=== PATIENT | female | born 1945 | race Caucasian/White ===

== ENCOUNTER → 2017-01-28 | Day surgery (SDC) | payer BC ==
[~2017-01-28] MED LIST: Lactated Ringers 1,000 ML IV SCH; Propofol 200 MG/20 ML SDV IV ONE
[2017-01-28 09:05] VITALS: BP 128/63
--- NOTE | 2017-01-31 07:20 | OR ---
DATE OF OPERATION: 01/28/2017 PREOPERATIVE DIAGNOSIS: 1. CHRONIC GASTROESOPHAGEAL REFLUX DISEASE. 2. HISTORY OF COLON POLYPS. POSTOPERATIVE DIAGNOSIS: 1. CHRONIC GASTROESOPHAGEAL REFLUX DISEASE. 2. HISTORY OF COLON POLYPS. SURGEON: Zaki Ayala MD PROCEDURE: 1. ESOPHAGOGASTRODUODENOSCOPY WITH POLYP REMOVAL X2, BIOPSY X2, QUINN. 2. FULL-LENGTH COLONOSCOPY. ANESTHESIA: [employer] due to ASA III and morbid obesity, BMI greater than 40. COMPLICATIONS: None. SPECIMEN: 1. Fundal polyps x2. 2. Fundal polyp biopsy x2. 3. Antral QUINN. FINDINGS: 1. Full-length EGD. 2. Fundal polyposis, adenomatous in appearance. 3. Hiatal hernia with spontaneous GERD without esophagitis or Jimenez's changes. 4. Full-length colonoscopy. 5. Mild sigmoid diverticulosis. RECOMMENDATIONS: The patient will have routine colonoscopy in 5 years. Routine follow up with Dr. Bryant for medical management of reflux. INDICATIONS: The patient apparently has a history of chronic GERD. She says she has had polyps in her stomach in the past. She has had multiple prior EGDs. She has also had colon polyps and is due for a followup colonoscopy. Dr. Bryant sent her for both upper and lower scopes. DESCRIPTION OF PROCEDURE: The patient was prepped and draped, placed in the left lateral decubitus position. A lubricated Olympus gastroscope was inserted over a bit, advanced into cricopharyngeal area, and easily intubated into the esophagus. Esophageal lining was benign in its entire course. The Z-line was crisp and sharp, at 37 cm, there is a mild to moderate-sized hiatal hernia present without any distal esophagitis, stricturing, ulceration, or Jimenez's changes. There is some spontaneous reflux seen. The scope was easily intubated into the stomach through the pylorus and into second and third portion of duodenum along with duodenal bulb, were completely benign. The scope was brought back into the stomach. For the most part, the entire antrum and distal fundus appeared unremarkable. With retroflexion look at the upper fundus and cardia, the patient does have polyposis syndrome. The patient does have countless benign appearing adenomatous polyps in the upper fundus. Cardia portion of the stomach all appear benign. Two of these were removed in their entirety almost with forceps. Two other larger wounds were biopsied at their base. These according to the patient have been removed in the past and required no surveillance. We did do 2 small removals and 2 biopsies for thoroughness. Air was then suctioned from the stomach and the scope was removed without complication. Lubricated Olympus colonoscope was then inserted and easily advanced to the cecum. Direct visualization of the ileocecal valve and appendiceal orifice was accomplished. The bowel prep was adequate. Upon withdrawal of the scope, throughout the cecum, right and transverse colons no abnormalities were seen. Descending area appeared benign. The patient does have scattered diverticula in the sigmoid albeit very mild. There were no signs of any polyps, mass, ulceration, or bleeding sites. No vascular abnormalities or signs of colitis. The rectal vault was unremarkable. Retroflexion of the scope in the rectum showed no perianal lesions. Air was then suctioned and the scope was removed without complication. HUBERT /[id number]
== END ==
LOC: CC.SDS 07:04
PROVIDERS: ATTEND Family Medicine
DX: Z12.11 Encounter for screening for malignant neoplasm of colon (principal); K31.7 Polyp of stomach and duodenum; K44.9 Diaphragmatic hernia without obstruction or gangrene; K57.30 Diverticulosis of large intestine without perforation or abscess without bleeding; Z88.1 Allergy status to other antibiotic agents; Z88.2 Allergy status to sulfonamides; Z88.8 Allergy status to other drugs, medicaments and biological substances
CPT/HCPCS: 43239; 45378; 87081; J2704; J7120